=== PATIENT | female | born 1960 | race Caucasian/White ===

== ENCOUNTER 2016-11-09 15:16 | Inpatient (IN) | payer OTHER ==
[~2016-11-09] VITALS: Ht 160 cm; Wt 81.0 kg
[2017-01-03] VITALS (12 sets, daily range): BP systolic 102–145; BP diastolic 53–89; PULSE 61–73; TEMP 97.6–98.2
[2017-01-03] MEDS ORDERED: COZAAR100 MG PO (06:28)
[2017-01-03] MEDS ORDERED: B-12 100 MCG (06:28)
[2017-01-03] MEDS ORDERED: VITAMINC1000TA PO (06:30)
[2017-01-03] MEDS ORDERED: OSCAL 500 TAB500 MG PO (06:30)
[2017-01-03] MEDS ORDERED: VITAMIN D 1001000 IU PO (06:30)
[2017-01-04 02:00] VITALS: BP 118/60; PULSE 64; TEMP 98.2
[2017-01-04 05:35] VITALS: BP 119/60; PULSE 61; TEMP 97.8
[2017-01-04 09:16] VITALS: BP 149/74; PULSE 72; TEMP 97.2
[2017-01-04] MEDS ORDERED: PERCOCET 325 MG1 TA2 PO (13:33)
[2017-01-04] MEDS ORDERED: SENOKOT S 50 MG1 TAB PO (13:33)
== END 2017-01-04 14:10 | disposition home or self-care (01) | DRG 748 ==
LOC: INPTSU 01-03 05:24 → SURG 01-03 07:30
PROVIDERS: Urology
PROC: 0USG4ZZ Reposition Vagina, Percutaneous Endoscopic Approach (ICD-10-PCS; principal; 2017-01-03 07:30)
PROC: 0TUD8JZ Supplement Urethra with Synthetic Substitute, Via Natural or Artificial Opening Endoscopic (ICD-10-PCS; 2017-01-03 07:30)
PROC: 8E0W4CZ Robotic Assisted Procedure of Trunk Region, Percutaneous Endoscopic Approach (ICD-10-PCS; 2017-01-03 07:30)
DX: N99.3 Prolapse of vaginal vault after hysterectomy (principal); N36.42 Intrinsic sphincter deficiency (ISD); N39.3 Stress incontinence (female) (male); Z87.891 Personal history of nicotine dependence
CPT/HCPCS: A4315; C1713; C1771; C1781; G0378; J0690; J1100; J1170; J1885; J2405; J2704; J3010; J7120